=== PATIENT | female | born 1955 | race Caucasian/White ===

== ENCOUNTER 2017-05-30 16:46 | Emergency (ER) | payer OTHER ==
[2017-05-30 18:38] LABS: Appearance,Urine Clear (Clear); Bilirubin,Urine Negative (Negative); Blood,Urine Negative (Negative); Color,Urine Light Yellow; Glucose,Urine (UA) Negative (Negative); Ketones,Urine Negative (Negative); Leukocyte Esterase,Urine Trace (Negative); Mucus,Urine Few /hpf; Nitrite,Urine Negative (Negative); Protein,Urine Negative (Negative); RBC,Urine <1 /hpf (0-5); Specific Gravity,Urine 1.011 (1.001-1.035); Squamous Epithelial Cell,Urine 1 /hpf (0-4); Urobilinogen,Urine <2.0 mg/dL (<2.0); WBC,Urine 1 /hpf (0-5)
[2017-05-30 18:39] VITALS: BP 155/71; PULSE 88; RESP 19
[2017-05-30] MEDS ORDERED: FLUCONAZOLE 150 MG TAB PO STA (18:59)
--- NOTE | 2017-05-30 19:03 | ED ---
Female Urogenital HPI - General Chief complaint: Urogenital Stated complaint: Urogenital Time Seen by Provider: 05/30/17 17:46 Source: patient, RN notes reviewed, old records reviewed Mode of arrival: ambulatory Limitations: no limitations - History of Present Illness Initial comments: This is a 61 year old female, with CC of vaginal itching and pelvic pressure when urinating. She reports that she feels a bulge adn drop of tissue when she strains. She reports it has been worse this past week. She denies any fever or chills. She denies dysuria. She reports she had 2 vaginal deliveries, and this pressure and bulge sensation occured after heavy lifting. She also complains of internal hemorroids. Patient is here on vacation, she does have a OBGYN in [facility] hometow. - Related Data Home Medications Medication Instructions Recorded Confirmed Cyanocobalamin (Vitamin B-12) 1,000 mcg PO HS 05/30/17 05/30/17 [Vitamin B-12] Multivitamins, Thera [Multivitamin 1 tab PO HS 05/30/17 05/30/17 (formulary)] Ideal-3 Fatty Acids/Fish Oil [Fish 1 cap PO HS 05/30/17 05/30/17 Oil 1,000 mg Softgel] traZODone HCL 50 mg PO HS 05/30/17 05/30/17 Previous Rx's Medication Instructions Recorded Fluconazole [Diflucan] 150 mg PO ONCE #3 tab 05/30/17 Hydrocortisone Suppository 25 mg RECTAL DAILY #10 supp 05/30/17 [Anusol-Hc] Allergies Allergy/AdvReac Type Severity Reaction Status Date / Time No Known Allergies Allergy Verified 05/30/17 17:47 Review of Systems ROS Statement: Those systems with pertinent positive or pertinent negative responses have been documented in the HPI. ROS Other: All systems not noted in ROS Statement are negative. Past Medical History Past Medical History: No Reported History History of Any Multi-Drug Resistant Organisms: None Reported Past Surgical History: No Surgical Hx Reported Past Psychological History: No Psychological Hx Reported Smoking Status: Never smoker Past Alcohol Use History: None Reported Past Drug Use History: None Reported General Exam - General Exam Comments Initial Comments: This is a 61 year old female, no distress Limitations: no limitations General appearance: alert, in no apparent distress Head exam: Present: atraumatic, normocephalic, normal inspection Eye exam: Present: normal appearance, PERRL, EOMI. Absent: scleral icterus, conjunctival injection, periorbital swelling ENT exam: Present: normal exam, mucous membranes moist Neck exam: Present: normal inspection. Absent: tenderness, meningismus, lymphadenopathy Respiratory exam: Present: normal lung sounds bilaterally. Absent: respiratory distress, wheezes, rales, rhonchi, stridor Cardiovascular Exam: Present: regular rate, normal rhythm, normal heart sounds. Absent: systolic murmur, diastolic murmur, rubs, gallop, clicks GI/Abdominal exam: Present: soft, normal bowel sounds. Absent: distended, tenderness, guarding, rebound, rigid External exam: Present: normal external exam Speculum exam: Present: normal speculum exam, other (evidence of cystocele) By manual exam: Present: normal by manual exam. Absent: cervical motion tenderness, adnexal tenderness Extremities exam: Present: normal inspection, full ROM, normal capillary refill. Absent: tenderness, pedal edema, joint swelling, calf tenderness Back exam: Present: normal inspection Neurological exam: Present: alert, oriented X3, CN II-XII intact Psychiatric exam: Present: normal affect, normal mood Skin exam: Present: warm, dry, intact, normal color. Absent: rash Course Vital Signs 05/30/17 05/30/17 05/30/17 17:22 18:33 19:13 Temperature 98.4 F 97.2 F L Pulse Rate 94 88 Respiratory 17 19 Rate Blood Pressure 186/78 155/71 O2 Sat by Pulse 98 99 Oximetry Medical Decision Making - Medical Decision Making This is a 61 year old female, with CC of vaginal itching and pelvic pressure when urinating. She reports that she feels a bulge adn drop of tissue when she strains. She reports it has been worse this past week. She denies any fever or chills. She denies dysuria. Patient urinalysis is negative. Patient has evidence of cystocele on exam. Discussed patient may need bladder sling procedure by urology or gynocology. discussed follow up with PCP and OBGYN. I will also treat patient with Diflucan for yeast infection. REturn parameters discussed. - Lab Data Lab Results 05/30/17 05/30/17 05/30/17 Range/Units 18:00 18:00 19:00 Urine Color Light Yellow Urine Appearance Clear (Clear) Urine pH 6.0 (5.0-8.0) Ur Specific [place] 1.011 (1.001-1.035) Urine Protein Negative (Negative) Urine Glucose (UA) Negative (Negative) Urine Ketones Negative (Negative) Urine Blood Negative (Negative) Urine Nitrite Negative (Negative) Urine Bilirubin Negative (Negative) Urine Urobilinogen <2.0 (<2.0) mg/dL Ur Leukocyte Esterase Trace H (Negative) Urine RBC <1 (0-5) /hpf Urine WBC 1 (0-5) /hpf Ur Squamous Epith Cells 1 (0-4) /hpf Urine Mucus Few H (None) /hpf Urine HCG, Qual Not Detected (Not Detectd) Trichomonas Ag (Rapid) Negative (Negative) Disposition Clinical Impression: Cystocele, Yeast infection of the vagina, Acute hemorrhoid Disposition: HOME SELF-CARE Condition: Good Instructions: Cystocele (ED) Additional Instructions: Patient follow-up with primary care provider. Return to the emergency department if any alarming signs or symptoms occur. 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 Prescriptions: Fluconazole [Diflucan] 150 mg PO ONCE #3 tab Hydrocortisone Suppository [Anusol-Hc] 25 mg RECTAL DAILY #10 supp Referrals: Nonstaff,Physician [Primary Care Provider] - 1-2 days Time of Disposition: 19:01
[2017-05-30 19:14] VITALS: TEMP 97.2
[2017-06-04 12:10] LABS: Chlamydia trachomatis rRNA Not detected (Not detected); Neisseria gonorrhoeae rRNA Not detected (Not detected)
== END 2017-05-30 19:14 | disposition home or self-care (01) ==
LOC: EC 16:46
DX: N81.10 Cystocele, unspecified (principal); B37.3 Candidiasis of vulva and vagina; K64.8 Other hemorrhoids; Z79.899 Other long term (current) drug therapy
CPT/HCPCS: 81001; 81025; 87070; 87205; 87491; 87591; 87808; 99284